=== PATIENT | female | born 1955 | race American Indian/Alaskan Native ===

== ENCOUNTER 2017-02-23 09:13 | Emergency (ER) | payer OTHER ==
--- NOTE | 2017-02-23 09:55 | Emergency Department Report ---
ED Back Pain/Injury HPI - General Chief Complaint: Extremity Problem,Nontraumatic Stated Complaint: LEG AND HIP PAIN Time Seen by Provider: 02/23/17 09:55 Source: patient Limitations: No Limitations - History of Present Illness MD Complaint: back pain Onset/Timin -: days(s) - Related Data Allergies Allergy/AdvReac Type Severity Reaction Status Date / Time Penicillins Allergy Swelling Verified 02/23/17 09:40 ED Review of Systems ROS: Stated complaint: LEG AND HIP PAIN Other details as noted in HPI ED Past Medical Hx - Past Medical History Previous Medical History?: No - Surgical History Past Surgical History?: Yes Additional Surgical History: hysterectomy, partial thyroid removal - Social History Smoking Status: Never Smoker Substance Use Type: None ED Physical Exam - General Limitations: No Limitations ED Course Vital Signs 02/23/17 09:41 Temperature 98.3 F Pulse Rate 102 H Respiratory 18 Rate Blood Pressure 215/124 O2 Sat by Pulse 97 Oximetry Critical care attestation.: If time is entered above; I have spent that time in minutes in the direct care of this critically ill patient, excluding procedure time. ED Disposition Condition: Stable
[2017-02-23] MEDS ORDERED: TYLENOL PO ONE (09:56)
[2017-02-23] MEDS ORDERED: NORVASC PO ONE (09:57)
--- NOTE | 2017-02-23 10:34 | Emergency Department Report ---
Chief Complaint: Extremity Problem,Nontraumatic Stated Complaint: LEG AND HIP PAIN Time Seen by Provider: 02/23/17 09:55 - HPI History of Present Illness: 61-year-old female past medical history herniated disks presents with lower back pain radiating down the right buttock and right leg intermittently for the last 2-3 days. Patient is awake alert and oriented 3 appears uncomfortable and states she is taking Motrin with minimal relief of her pain. Patient's blood pressure is elevated in triage over 200 systolic and over 120 diastolic - ROS Review of Systems: History of herniated disks and lower back pain - Exam Vital Signs: Vital Signs 02/23/17 09:41 Temperature 98.3 F Pulse Rate 102 H Respiratory 18 Rate Blood Pressure 215/124 O2 Sat by Pulse 97 Oximetry Physical Exam: Positive straight leg raise test, patient is ambulatory strength 5 out of 5 lower extremities MSE screening note: Focused history and physical exam performed. Due to findings the following was ordered: Screening Assessment/Plan/Differential Dx: Lower back pain, sciatica, hypertension 1- This initial assessment/diagnostic orders/clinical plan/ treatment(s) is/are subject to change based on pt's health status, clinical progression and re- assessment by fellow clinical providers in the ED. Further treatment and workup at subsequent clinical provers discretion. Patient/guardians urged not to elope from ED as their condition may be serious if not clinically assessed and managed. 2-patient's blood pressure significantly elevated required more extensive workup , basic labs, EKG, UA 3-pain is likely from sciatica will order L-spine x-ray ED Disposition for MSE Condition: Stable Referrals: PRIMARY CARE, [Primary Care Provider] - 3-5 Days
--- NOTE | 2017-02-23 10:54 | XRay Report ---
LUMBOSACRAL SPINE, 3 VIEWS: History: Lower back pain Findings: The vertebral bodies, disk spaces and posterior elements are intact. No compression deformity or malalignment. The SI joints are symmetric and unremarkable. Mild facet arthropathy is noted throughout the lumbar spine. Impression: Mild degenerative changes. No acute process identified.
[2017-02-23 11:16] LABS: Bilirubin,Urine NEG (Negative); Blood,Urine SM (Negative); Ketones,Urine NEG (Negative); Leukocyte Esterase,Urine NEG (Negative); Mucus,Urine 1+ /HPF; Nitrite,Urine NEG (Negative); Protein,Urine <15 mg/dL mg/dL (Negative); Urobilinogen,Urine < 2.0 mg/dL (<2.0)
[2017-02-23 11:23] LABS: Basophils % (Auto) 0.2 % (0.0-1.8); Eosinophils % (Auto) 0.2 % (0.0-4.3); Hematocrit 37.7 % (30.3-42.9); Hemoglobin 12.1 gm/dl (10.1-14.3); Mean Corpuscular HGB Conc 32 % (30-34); Mean Corpuscular Hemoglobin 32 pg (28-32); Mean Corpuscular Volume 100 fl (79-97); Platelet Count 244 K/mm3 (140-440); Red Blood Count 3.78 M/mm3 (3.65-5.03); Red Cell Distribution Width 13.8 % (13.2-15.2); White Blood Count 2.4 K/mm3 (4.5-11.0)
[2017-02-23 11:42] LABS: Anion Gap 16 mmol/L; Blood Urea Nitrogen 13 mg/dL (7-17); Calcium 9.9 mg/dL (8.4-10.2); Carbon Dioxide 29 mmol/L (22-30); Chloride 102.5 mmol/L (98-107); Glucose 87 mg/dL (65-100); Potassium 4.2 mmol/L (3.6-5.0); Sodium 143 mmol/L (137-145)
[2017-02-23] MEDS ORDERED: ZOFRAN IV ONE (12:15)
[2017-02-23] MEDS ORDERED: MORPHINE IV ONE (12:15)
--- NOTE | 2017-02-23 12:20 | Emergency Department Report ---
ED Back Pain/Injury HPI - General Chief Complaint: Extremity Problem,Nontraumatic Stated Complaint: LEG AND HIP PAIN Time Seen by Provider: 02/23/17 09:55 Source: patient Limitations: No Limitations - History of Present Illness Initial Comments: Ms. Nelson is a 61 years old female history of chronic back pain diagnosed with degenerative disc disease complaining of back pain that radiated down to her right leg started yesterday described her pain as sharp 9 out of 10. Denied any fever, no weakness no numbness or tingling sensation no bowel or bladder incontinence. MD Complaint: back pain -: Gradual, days(s) Similar Symptoms Previously: Yes Radiation: right leg Severity scale (0 -10): 9 Quality: sharp Consistency: constant Improves With: immobilization Worsens With: movement, walking Associated Symptoms: denies other symptoms. denies: weakness, numbness, difficulty walking, incontinence, fever/chills, nausea/vomiting - Related Data Previous Rx's Medication Instructions Recorded Last Taken Type Metaxalone [Skelaxin] 800 mg PO TID #30 tablet 02/23/17 Unknown Rx Ondansetron [Zofran Odt] 4 mg PO Q8HR PRN #14 tab.rapdis 02/23/17 Unknown Rx Prednisone [predniSONE 10 mg 10 mg PO .TAPER #1 tab.ds.pk 02/23/17 Unknown Rx (6-Day Pack, 21 Tabs)] oxyCODONE /ACETAMINOPHEN [Percocet 1 tab PO Q6HR PRN #14 tablet 02/23/17 Unknown Rx 5/325] Allergies Allergy/AdvReac Type Severity Reaction Status Date / Time Penicillins Allergy Swelling Verified 02/23/17 09:40 ED Review of Systems ROS: Stated complaint: LEG AND HIP PAIN Other details as noted in HPI Comment: All other systems reviewed and negative Constitutional: denies: chills, fever Respiratory: denies: cough, shortness of breath, SOB with exertion Cardiovascular: denies: chest pain Endocrine: denies: intolerance to cold Gastrointestinal: denies: abdominal pain, nausea, vomiting Neurological: denies: headache ED Past Medical Hx - Past Medical History Previous Medical History?: No - Surgical History Past Surgical History?: Yes Additional Surgical History: hysterectomy, partial thyroid removal - Social History Smoking Status: Never Smoker Substance Use Type: None - Medications Home Medications: Home Medications Medication Instructions Recorded Confirmed Last Taken Type Metaxalone [Skelaxin] 800 mg PO TID #30 tablet 02/23/17 Unknown Rx Ondansetron [Zofran Odt] 4 mg PO Q8HR PRN #14 tab.rapdis 02/23/17 Unknown Rx Prednisone [predniSONE 10 mg 10 mg PO .TAPER #1 tab.ds.pk 02/23/17 Unknown Rx (6-Day Pack, 21 Tabs)] oxyCODONE /ACETAMINOPHEN [Percocet 1 tab PO Q6HR PRN #14 tablet 02/23/17 Unknown Rx 5/325] ED Physical Exam - General Limitations: No Limitations General appearance: alert, in distress (secondary to pain patient is in tears) - Head Head exam: Present: atraumatic - Eye Eye exam: Present: normal appearance - ENT ENT exam: Present: normal exam - Neck Neck exam: Present: normal inspection - Respiratory Respiratory exam: Present: normal lung sounds bilaterally. Absent: respiratory distress, wheezes, rales, rhonchi - Cardiovascular Cardiovascular Exam: Present: regular rate, normal rhythm, normal heart sounds - GI/Abdominal GI/Abdominal exam: Present: soft. Absent: distended, tenderness, guarding, rebound, rigid - Extremities Exam Extremities exam: Present: normal inspection, full ROM, normal capillary refill - Back Exam Back exam: Present: normal inspection, tenderness, muscle spasm, paraspinal tenderness. Absent: vertebral tenderness - Neurological Exam Neurological exam: Present: alert, oriented X3, CN II-XII intact, normal gait, reflexes normal. Absent: motor sensory deficit - Skin Skin exam: Present: warm, intact, normal color ED Course Vital Signs 02/23/17 02/23/17 02/23/17 09:41 11:46 11:54 Temperature 98.3 F Pulse Rate 102 H 61 63 Respiratory 18 14 Rate Blood Pressure 215/124 170/99 Blood Pressure [Left] O2 Sat by Pulse 97 98 Oximetry 02/23/17 02/23/17 02/23/17 11:57 12:00 12:15 Temperature 98.4 F Pulse Rate 63 63 59 L Respiratory 18 12 15 Rate Blood Pressure 172/94 172/94 Blood Pressure 170/99 [Left] O2 Sat by Pulse 100 100 100 Oximetry 02/23/17 02/23/17 12:31 12:45 Temperature Pulse Rate 61 64 Respiratory 13 9 L Rate Blood Pressure 172/94 172/94 Blood Pressure [Left] O2 Sat by Pulse 100 100 Oximetry - Reevaluation(s) Reevaluation #1: 02/23/17 13:47 Patient stated that she is feeling much better. Denied any weakness in her lower extremity no numbness or tingling sensation. No bowel or bladder incontinence. We'll discharge home to follow up with her primary care physician. ED Medical Decision Making - Lab Data Result diagrams: 02/23/17 10:50 02/23/17 10:50 - Radiology Data Radiology results: report reviewed Lumbar x-ray showed severe degenerative disc disease,no acute fracture - Medical Decision Making Patient stated that she is feeling better she does not have any neurological deficit that this moment, I will discharge patient with pain medicine, steroid and muscle relaxant and asked to follow along as her primary care physician.. Critical care attestation.: If time is entered above; I have spent that time in minutes in the direct care of this critically ill patient, excluding procedure time. ED Disposition Clinical Impression: Back pain of lumbar region with sciatica Disposition: - TO HOME OR SELFCARE Is pt being admited?: No Condition: Stable Instructions: Sciatica (ED), Lumbar Radiculopathy (ED) Referrals: PRIMARY CARE, [Primary Care Provider] - 3-5 Days
[2017-02-23 14:07] VITALS: BP 139/81
== END 2017-02-23 14:21 | disposition home or self-care (01) ==
LOC: ED 09:13
DX: M54.41 Lumbago with sciatica, right side (principal); G89.29 Other chronic pain; Z88.0 Allergy status to penicillin
CPT/HCPCS: 36415; 72100; 80048; 81001; 84484; 85025; 87086; 93005; 93010; 96374; 96375; 99284; J2270; J2405; J2930

== ENCOUNTER 2017-05-06 09:15 | Outpatient (CLI) | payer OTHER ==
--- NOTE | 2017-05-06 11:16 | Mammography Report ---
BILATERAL DIGITAL SCREENING MAMMOGRAM with CAD: 05/06/17 09:15:00 CLINICAL: Routine screening. COMPARISON:None available. FINDINGS: The breasts are heterogeneously dense, which may obscure small masses. No mass, architectural distortion or suspicious calcifications. IMPRESSION: No mammographic evidence of malignancy. BI-RADS CATEGORY: 1 - - Negative RECOMMENDATION: Routine mammographic screening in one year. COMMENT: Patient follow-up letters are generated by our [employer] application.
== END 2017-05-06 09:16 | disposition home or self-care (01) ==
LOC: SPVWC 09:15
PROVIDERS: ATTEND General Practice
DX: Z12.31 Encounter for screening mammogram for malignant neoplasm of breast (principal)
CPT/HCPCS: 77067; G0202

== ENCOUNTER 2021-05-10 07:12 | Day surgery (SDC) | payer OTHER ==
[~2021-05-10 07:12] MED LIST: SODIUM CHLORIDE 0.9% 1000 ML 1,000 ML IV SCH
--- NOTE | 2021-05-10 07:52 | Anesthesia Day of Surgery ---
Anesthesia Day of Surgery - Day of Surgery Patient Examined: Yes Patient H&P Reviewed: Yes Patient is NPO: Yes
--- NOTE | 2021-05-10 07:52 | Anesthesia Consultation ---
Anesthesia Consult and Med Hx Date of service: 05/10/21 - Airway Anesthetic Teeth Evaluation: Good ROM Head & Neck: Adequate Mental/Hyoid Distance: Adequate Mallampati Class: Class II Intubation Access Assessment: Good - Pulmonary Exam CTA: Yes - Cardiac Exam Cardiac Exam: RRR - Pre-Operative Health Status ASA Pre-Surgery Classification: ASA1 Proposed Anesthetic Plan: MAC
[2021-05-10] MEDS ORDERED: propofoL 200 MG/20 ML VIAL IV ONE ×2 (09:30→09:43)
[2021-05-10] MEDS ORDERED: LIDOCAINE MPF (2%) 20 MG/1 ML VIAL 5 ML ONE (09:31)
--- NOTE | 2021-05-10 09:55 | Procedure Note ---
Date of procedure: 05/10/21 Pre-op diagnosis: Screening Colonoscopy Post-op diagnosis: other (No Colon Polyps noted/ Moderate, Left Colon Diverticuli/ Mild to Moderate Internal Hemorrhoids) Procedure: Colonoscopy Anesthesia: MAC Surgeon: RISHI SONI Estimated blood loss: none Pathology: none Specimen disposition: to lab Condition: stable Disposition: same day (ication. Resume home medication and F/U in 1 to 2 weeks ([phone]).)
--- NOTE | 2021-05-10 10:10 | Operative Report ---
DATE OF SURGERY: 05/10/2021 PROCEDURE: Colonoscopy. INDICATIONS: This is a 65-year-old -Citizen Of [place] female who had a colonoscopy done as part of colon polyp screening. DESCRIPTION OF PROCEDURE: Procedure was done after getting informed consent with MAC anesthesia. Initial rectal exam was unremarkable. The instrument was passed through the rectum onto the cecum, which was identified by the ileocecal valve and the appendiceal orifice. Cecum was also visualized on the retroverted view. No additional pathology was noted. The scope was withdrawn to the hepatic flexure and reintroduced to the cecum. The cecum, ascending colon and transverse colon showed normal mucosa. There was moderate deep diverticular disease noted in the left colon and the rectum showed some mild to moderate internal hemorrhoid on the retroverted view. There was no bleeding associated with the procedure. No complications associated with the procedure. ASSESSMENT: Colon polyp screening. No colon polyps noted. Moderate deep left colon diverticula and mild to moderate internal hemorrhoids. PLAN: The patient will be asked encouraged to take fiber supplements and to avoid aspirin and aspirin-related products. Otherwise, the patient will be asked to resume home medication. Follow up in the office in 1-2 weeks' time. Procedure was done in the GI lab with assistance of the GI lab team, which included the GI nurse, the certified veterinary technician and with the assistance of anesthesia. TID: [id number] RECEIPT: [id number] ELISE
--- NOTE | 2021-05-10 11:10 | Post Anesthesia Evaluation ---
- Post Anesthesia Evaluation Patient Participated: Yes Airway Patent: Yes Stable Respiratory Function: Yes Nausea/Vomiting: No Temp > 96.8F: Yes Pain Manageable: Yes Adequeate Hydration: Yes Anesthesia Complications: No
[2021-05-10 16:17] VITALS: BP 125/75
== END 2021-05-10 10:40 | disposition home or self-care (01) ==
LOC: GIO 07:12
DX: Z12.11 Encounter for screening for malignant neoplasm of colon (principal); K57.30 Diverticulosis of large intestine without perforation or abscess without bleeding; K64.0 First degree hemorrhoids; K63.89 Other specified diseases of intestine; Z79.899 Other long term (current) drug therapy; Z98.890 Other specified postprocedural states; Z88.0 Allergy status to penicillin
CPT/HCPCS: 45378; J2704; J3490; J7030; J7120; Q0162